=== PATIENT | female | born 1995 | race Caucasian/White ===

== ENCOUNTER 2016-10-09 13:46 | Emergency (ER) | payer OTHER ==
--- NOTE | 2016-10-09 15:49 | UC ---
UC General HPI - HPI Summary HPI Summary: fever, cough ,sore throat, bodyache, SIMENTAL for 5 days - History of Current Complaint Chief Complaint: UCGeneralIllness Stated Complaint: FEVER,COUGH,BODY ACHES Hx Obtained From: Patient Onset/Duration: Sudden Onset, Lasting Days Timing: Constant Onset Severity: Severe Current Severity: Severe Pain Intensity: 7 Associated Signs & Symptoms: Positive: Cough, Fever, Headache, Nausea, Weakness - Allergy/Home Medications Allergies/Adverse Reactions: Allergies Allergy/AdvReac Type Severity Reaction Status Date / Time No Known Allergies Allergy Verified 10/09/16 14:41 Home Medications: Home Medications Acetaminophen TAB* [Tylenol TAB*] 650 mg PO Q4H PRN 10/09/16 [History Confirmed 10/09/16] Dextromethorphan-Phenylephrine [Theraflu Severe Cold & Co] 1 tab PO Q6H PRN [History Confirmed 10/09/16] PMH/Surg Hx/FS Hx/Imm Hx Previously Healthy: Yes - Surgical History Surgical History: None - Family History Known Family History: Positive: Hypertension - Social History Alcohol Use: None Substance Use Type: None Smoking Status (MU): Never Smoked Tobacco Household Exposure Type: Cigarettes Review of Systems Constitutional: Fever, Chills, Fatigue Skin: Negative Eyes: Negative ENT: Sore Throat, Nasal Discharge Respiratory: Cough Cardiovascular: Negative Gastrointestinal: Negative Genitourinary: Negative Motor: Negative Neurovascular: Negative Musculoskeletal: Myalgia Neurological: Headache Psychological: Negative All Other Systems Reviewed And Are Negative: Yes Physical Exam Triage Information Reviewed: Yes Appearance: Well-Nourished, Ill-Appearing, Pain Distress Vital Signs: Initial Vital Signs Temp 97.6 F 10/09/16 14:42 Pulse 76 10/09/16 14:42 Resp 16 10/09/16 14:42 BP 106/62 10/09/16 14:42 Pulse Ox 98 10/09/16 14:42 Vital Signs Reviewed: Yes Eye Exam: Normal Eyes: Positive: Conjunctiva Clear ENT: Positive: Pharyngeal erythema, Nasal congestion, Nasal drainage, TM red, Tonsillar exudate Dental Exam: Normal Neck exam: Normal Neck: Positive: Supple, Nontender, No Lymphadenopathy Respiratory Exam: Normal Respiratory: Positive: Chest non-tender, Lungs clear, Normal breath sounds, Other: - dry cough present Cardiovascular Exam: Normal Cardiovascular: Positive: RRR, No Murmur, Pulses Normal Abdominal Exam: Normal Abdomen Description: Positive: Nontender, No Organomegaly, Soft Bowel Sounds: Positive: Present Musculoskeletal Exam: Normal Musculoskeletal: Positive: Strength Intact, ROM Intact Neurological: Positive: Alert, Muscle Tone Normal Psychological Exam: Normal Skin Exam: Normal Course/Dx - Course Course Of Treatment: hx obtained, exam performed, meds prescribed for cough, flu swab positive for A - Differential Dx - Multi-Symptom Provider Diagnoses: influenza. cough Discharge - Discharge Plan Condition: Stable Disposition: HOME Patient Education Materials: Influenza (ED) Additional Instructions: Take the medication as prescribed. Get plenty of rest and increase your fluid intake.
[2016-10-09 16:05] VITALS: BP 104/70
== END 2016-10-09 16:05 | disposition home or self-care (01) ==
LOC: UCCORT 13:46
DX: J11.1 Influenza due to unidentified influenza virus with other respiratory manifestations (principal)
CPT/HCPCS: 87502; 99212; G0463

== ENCOUNTER 2017-02-20 21:45 | Emergency (ER) | payer OTHER ==
[2017-02-20 21:54] VITALS: BP 129/79
--- NOTE | 2017-02-20 22:07 | UC ---
Complaint Female HPI - HPI Summary HPI Summary: pt presnts with c/o post coital bleeding. Pt began being sexually active 8 months ago and has only had one sexual partner. Pt is not using any form of control. Pt denies and unusual vaginal discharge or odor. Pt reports that sexual intercourse can occasionally be "rough" and painful. Pt any exposure or risk for STD Pt reports that bleeding has been intermittent over the last 2 months. - History Of Current Complaint Chief Complaint: UCGU Stated Complaint: PERSONAL Time Seen by Provider: 02/20/17 21:56 Hx Obtained From: Patient Hx Last Menstrual Period: 02/10/17 ?: No Onset/Duration: Gradual Onset Timing: Intermittent Severity Initially: Mild Severity Currently: Mild Aggravating Factor(s): [place] Associated Signs And Symptoms: Positive: Vaginal Bleeding/Discharge - bleeding with intercourse. - Risk Factors Ovarian Torsion Risk Factor: Reproductive Age - Allergies/Home Medications Allergies/Adverse Reactions: Allergies Allergy/AdvReac Type Severity Reaction Status Date / Time No Known Allergies Allergy Verified 02/20/17 21:54 PMH/Surg Hx/FS Hx/Imm Hx Previously Healthy: Yes - Surgical History Surgical History: None - Family History Known Family History: Positive: Hypertension - Social History Alcohol Use: None Substance Use Type: None Smoking Status (MU): Never Smoked Tobacco Household Exposure Type: Cigarettes Review of Systems Constitutional: Negative Skin: Negative Eyes: Negative ENT: Negative Respiratory: Negative Cardiovascular: Negative Gastrointestinal: Negative Genitourinary: Other - vaginal bleeding with intercourse Motor: Negative Neurovascular: Negative Musculoskeletal: Negative Neurological: Negative Psychological: Negative All Other Systems Reviewed And Are Negative: Yes Physical Exam Triage Information Reviewed: Yes Appearance: Well-Appearing Vital Signs: Initial Vital Signs Temp 99.2 F 02/20/17 21:49 Pulse 80 02/20/17 21:49 Resp 16 02/20/17 21:49 BP 129/79 02/20/17 21:49 Pulse Ox 100 02/20/17 21:49 Vital Signs Reviewed: Yes Eye Exam: Other - stye left lower lid Neck exam: Normal Respiratory: Positive: No respiratory distress Musculoskeletal Exam: Normal Neurological Exam: Normal Psychological Exam: Normal Skin Exam: Normal Complaint Female Dx - Course Course Of Treatment: I discussed with the pt the need establish care with a patient carrier provider and establish a method of control and STD risk management with use of condoms. I offered the pt a pelvic exam but she declined. - Differential Dx/Diagnosis Differential Diagnosis/HQI/PQRI: Other - post coital bleeding Provider Diagnoses: dysfunctionl vaginal bleeding,. control referral. need for patient carrier care Discharge - Discharge Plan Condition: Stable Disposition: HOME Patient Education Materials: Dysfunctional Uterine Bleeding (ED) Referrals: Chana Conway MD [Primary Care Provider] - Additional Instructions: Please follow up at: [facility] as soon as possible. It is important that you manage your health with continuity of care. Physical Address: [address] [place] [address] Floor, [address] [place] [address] Hours Examinations: Tuesday ~ 8:00AM - 4:00PM Tuesday ~ 8:00AM - 4:00PM Tuesday ~ 8:00AM - 4:00PM ~ 10:00AM - 6:00PM Tuesday ~ 8:00AM ~ 4:00PM
== END 2017-02-20 22:23 | disposition home or self-care (01) ==
LOC: UCCORT 21:45
DX: N93.8 Other specified abnormal uterine and vaginal bleeding (principal)
CPT/HCPCS: 99211; G0463

== ENCOUNTER → 2017-05-21 19:38 | Emergency (ER) | payer OTHER ==
[~2017-05-21 19:38] MED LIST: Sulfamethox/Trimethoprim DS 800/160* TAB ONE
== END | disposition home or self-care (01) ==
LOC: UCCORT 19:38
DX: L03.311 Cellulitis of abdominal wall (principal)
CPT/HCPCS: A9270-GY

== ENCOUNTER 2017-12-06 10:06 | Emergency (ER) | payer SELFPAY ==
[2017-12-06 10:56] VITALS: BP 116/62
--- NOTE | 2017-12-06 11:06 | UC ---
Nausea/Vomiting/Diarrhea HPI - HPI Summary HPI Summary: 22 y/o female presents to the urgent care c/o vomiting for the past 4 days. Pt states the first 2 days she had 2 episodes of nausea and vomiting. Yesterday she had 6 episodes. Today just one in the morning. Vomiting in mainly when she wakes up or trigger by certain smells. Pt denies Fever, abdominal pain, dizziness, SIMENTAL, SOB, chest pain, diarrhea or constipation. LMP:10/25/2017. She has had unprotected sex w/ her boyfriend. Pt denies Hx of STD's, vaginal discharge or urinary symptoms. she has not taking anything to alleviate symptoms. - History of Current Complaint Chief Complaint: UCGI Stated Complaint: VOMITING Time Seen by Provider: 12/06/17 10:58 Hx Obtained From: Patient Hx Last Menstrual Period: 10/25/17 ?: No - unsure Onset/Duration: Gradual Onset, Lasting Days - 4 days, Still Present, Worse Since - yesterday Timing: Intermittent Episodes Lasting: Severity Initially: Mild Severity Currently: Moderate Pain Intensity: 1 Pain Scale Used: 0-10 Numeric Location: Suprapubic - mild cramping at times Character: Cramping Aggravating Factor(s): Other: - smells Alleviating Factor(s): Nothing Vomiting Frequency: Every 3-4 hours Nausea/Vomiting Duration: 2-3 days Vomiting Characteristics: Bilious Diarrhea Presence: No - Risk Factors Influenza Risk Factors: Negative Surgical Obstruction Risk Factor(s): Negative - Allergies/Home Medications Allergies/Adverse Reactions: Allergies Allergy/AdvReac Type Severity Reaction Status Date / Time No Known Allergies Allergy Verified 12/06/17 10:49 PMH/Surg Hx/FS Hx/Imm Hx Previously Healthy: Yes - Pt denies PMHX - Surgical History Surgical History: None - Family History Known Family History: Positive: Hypertension - Social History Occupation: Employed Full-time Lives: With Family Alcohol Use: None Substance Use Type: None Smoking Status (MU): Never Smoked Tobacco Household Exposure Type: Cigarettes Review of Systems Constitutional: Negative Skin: Negative Eyes: Negative ENT: Negative Respiratory: Negative Cardiovascular: Negative Gastrointestinal: Abdominal Pain - mild suprapubic pain, Vomiting, Nausea Genitourinary: Negative Motor: Negative Neurovascular: Negative Musculoskeletal: Negative Neurological: Negative Psychological: Negative Is Patient Immunocompromised?: No All Other Systems Reviewed And Are Negative: Yes Physical Exam - Summary Physical Exam Summary: Vital Signs Reviewed: Yes General:Patient is a well developed and nourished obese female who is sitting comfortable in the examining table. Patient is not in any acute respiratory distress. Eyes: Positive: Conjunctiva Clear - PERRLA, EOMI, fundi grossly normal ENT: Positive: Normal ENT inspection, Hearing grossly normal, Pharynx normal, TMs normal Neck: Positive: Supple, Nontender, No Lymphadenopathy Respiratory: Positive: Chest non-tender, Lungs clear, Normal breath sounds, No respiratory distress Cardiovascular: Positive: RRR,S1 and S2 present, No Murmur, Pulses Normal, Brisk Capillary Refill Abdomen Description: Positive: Nontender, Other: - Abd: Flat with no distention. No surface trauma, scars, incisions.Normal bowel sounds present in all four quadrants. No tenderness, guarding, rigidity to palpation. No masses palpated, no pulsation in epigastric area. No organomegaly. Negative Cecil signs. No periumbilical tenderness. No rebound in the lower quadrants. NT over McBurneys point. Good femoral pulses bilaterally. No hernia noted. No CVAT bilaterally Musculoskeletal: Positive: Strength Intact, ROM Intact, No Edema,FROM in all major joints, no edema, no cyanosis or clubbing. Neuro: Alert and oriented x 3. No acute neurological deficits. Speech is normal. Psychological: WNL Skin: Dry and warm Triage Information Reviewed: Yes Vital Signs: Initial Vital Signs Temp 98.2 F 12/06/17 10:49 Pulse 69 12/06/17 10:49 Resp 16 12/06/17 10:49 BP 116/62 12/06/17 10:49 Pulse Ox 99 12/06/17 10:49 Naus/Vom/Diarrhea Course/Dx - Course Course Of Treatment: 22 y/o female presents to the urgent care c/o vomiting for the past 4 days. Pt states the first 2 days she had 2 episodes of nausea and vomiting. Yesterday she had 6 episodes. Today just one in the morning. Vomiting in mainly when she wakes up or trigger by certain smells. Pt denies Fever, abdominal pain, dizziness, SIMENTAL, SOB, chest pain, diarrhea or constipation. LMP:. She has had unprotected sex w/ her boyfriend. Pt denies Hx of STD's, vaginal discharge or urinary symptoms. she has not taking anything to alleviate symptoms. Hx obtained. PE:WNL, no signs of dehydration. UA and test ordered. UA:+ trace leukoesteraces. : Positive. Pt Rx Diclegis PO to alleviate Nausea and Vomiting. Pt educated on the improtance to be hydrated. advised to increase fluid intake, eat soft meals, rest. REcommended to f/y W/ OBGYN Dr Jones or he OBGYN as soon as possible to start Pre-nikki care. Pt and Mother explained D/C instructions. Pt understood and agreed w/ plan of care. Pt left the clinic ambulating, A&OX3 - Differential Dx/Diagnosis Differential Diagnoses - Female: Appendicitis, , Gerd, Gastroenteritis (Viral), Gastroenteritis (Bacterial), Vomiting Provider Diagnoses: 1- Acute nausea and vomiting. 25- Condition At Discharge: Stable Discharge - Sign-Out/Discharge Documenting (check all that apply): Discharge/Admit/Transfer - discharge home - Discharge Plan Condition: Stable Disposition: HOME Prescriptions: Doxylamine/Pyridoxine(NF) [Diclegis (NF)] 2 tab PO QPM #20 tab Patient Education Materials: Nausea and Vomiting in (ED), ( ED) Referrals: Thomas Jones MD [Medical Doctor] - 2 Days Additional Instructions: 1- Please increase fluid intake to improve hydration. Drink adult Pedialyte or Gatorade , eat soft meals and small portions through out the day. 2-Take Diclegis PO as directed to alleviate Nausea and vomiting. 3- Please make an appt w/ OBGY DR Jones or your OBGYN as soon as possible to start your Pre- care. 4-Start taking Pre vitamins. - Billing Disposition and Condition Condition: STABLE Disposition: HOME
== END 2017-12-06 11:26 | disposition home or self-care (01) ==
LOC: UCCORT 10:06
DX: O21.9 Vomiting of pregnancy, unspecified (principal); Z3A.00 Weeks of gestation of pregnancy not specified
CPT/HCPCS: 81003; 84702; 87086; 99212; G0463

== ENCOUNTER 2018-09-01 09:20 | Emergency (ER) | payer OTHER ==
[2018-09-01 09:45] VITALS: BP 102/60
--- NOTE | 2018-09-01 10:21 | UC ---
Complaint Female HPI - HPI Summary HPI Summary: Pt presents with c/o anal itching and appearance of "white string" after wiping after BM. Pt is concerned for pinworms. Also, pt has hx of internal and external hemorrhoid post delivery. Pt denies anal itching worsening at anytime time of the day. C/O X 2 days. - History Of Current Complaint Chief Complaint: UCGI Stated Complaint: PERSONAL Time Seen by Provider: 09/01/18 10:04 Hx Obtained From: Patient Hx Last Menstrual Period: 07/26/18 -08/18/18 ?: No Onset/Duration: Sudden Onset, Lasting Days, Still Present Timing: Intermittent Severity Initially: Mild Severity Currently: Mild Pain Intensity: 0 Character: Burning Aggravating Factor(s): Nothing Alleviating Factor(s): Nothing Associated Signs And Symptoms: Positive: Negative - Risk Factors Ectopic Risk Factor: Negative Ovarian Torsion Risk Factor: Reproductive Age - Allergies/Home Medications Allergies/Adverse Reactions: Allergies Allergy/AdvReac Type Severity Reaction Status Date / Time No Known Allergies Allergy Verified 09/01/18 09:46 Home Medications: Home Medications NK [No Home Medications Reported] 09/01/18 [History Confirmed 09/01/18] PMH/Surg Hx/FS Hx/Imm Hx Previously Healthy: Yes - Surgical History Surgical History: None - Family History Known Family History: Positive: Hypertension - Social History Occupation: Employed Full-time, Works From/At Home Lives: With Family Alcohol Use: None Substance Use Type: None Smoking Status (MU): Never Smoked Tobacco Have You Smoked in the Last Year: No Household Exposure Type: Cigarettes - Immunization History Vaccination Up to Date: Yes Review of Systems All Other Systems Reviewed And Are Negative: Yes Constitutional: Positive: Negative Skin: Positive: Negative, Other - anal itching Eyes: Positive: Negative ENT: Positive: Negative Respiratory: Positive: Negative Cardiovascular: Positive: Negative Gastrointestinal: Positive: Other - anal itching Genitourinary: Positive: Negative Motor: Positive: Negative Neurovascular: Positive: Negative Musculoskeletal: Positive: Negative Neurological: Positive: Negative Psychological: Positive: Negative Is Patient Immunocompromised?: No Physical Exam Triage Information Reviewed: Yes Appearance: Well-Appearing Vital Signs: Initial Vital Signs Temp 97.8 F 09/01/18 09:35 Pulse 63 09/01/18 09:35 Resp 20 09/01/18 09:35 BP 102/60 09/01/18 09:35 Pulse Ox 100 09/01/18 09:35 Vital Signs Reviewed: Yes Eye Exam: Normal ENT Exam: Normal Dental Exam: Normal Neck exam: Normal Respiratory: Positive: No respiratory distress Pelvic Exam: Positive: Other - anus no lesions, no hemorrhoids external or internal, no visible pinworms. Pinworm paddle used as well as single digital exam performed. Complaint Female Dx - Differential Dx/Diagnosis Differential Diagnosis/HQI/PQRI: Other - pinworms, hemorrhoid Provider Diagnosis: Anal itching Discharge - Sign-Out/Discharge Documenting (check all that apply): Patient Departure All imaging exams completed and their final reports reviewed: No Studies - Discharge Plan Condition: Stable Disposition: HOME Patient Education Materials: Anal Itching (ED) Referrals: [facility] [Outside] - If Needed No Primary Care Phys,NOPCP [Primary Care Provider] - - Billing Disposition and Condition Condition: STABLE Disposition: Home - Attestation Statements Provider Attestation: I was available for consult. This patient was seen by the RACHELL. The patient was not presented to, seen by, or examined by me. -Madelaine
== END 2018-09-01 10:32 | disposition home or self-care (01) ==
LOC: UCCORT 09:20
DX: L29.0 Pruritus ani (principal)
CPT/HCPCS: 87172; 99211; G0463

== ENCOUNTER 2019-05-18 09:08 | Emergency (ER) | payer OTHER ==
--- OUTSIDE RECORDS SUMMARY | 2019-05-18 09:22 | XMS REPORT | Continuity of Care Document ---
:1995 External Reference #:[id number] Author Name Emilee Vega PA Address [address] [place] [address] Care Team Providers Name Role Phone Emilee Vega PA - Medical Care Team Information Director Of Search Engine Marketing [phone] Problems Description No Information Available Social History Type Date Description Comments Sex Unknown ETOH Use Denies alcohol use Tobacco Use Start: Unknown Patient denies history of smoking Smoking Status Reviewed: 03/30/19 Patient denies history of smoking Exercise Type/Frequency Exercises rarely Allergies, Adverse Reactions, Alerts Description No Known Drug Allergies Medications Active Medications SIG Qnty Indications Ordering Date Provider Magnesium Oxide 1 by mouth every 30tabs R51 Justin 03/30/2019 400mg Tablets day MD Trista Vitamin B-2 1 by mouth every 30tabs R51 Justin 03/30/2019 100mg Tablets day for MD Trista prevention of headache Escitalopram Oxalate 1 by mouth every 30tabs F41.9 Justin, 12/25/2018 10mg Tablets day MD Trista Medroxyprogesterone Use as Directed Unknown Acetate 150mg/ml Suspension Immunizations Description No Information Available Vital Signs Date Vital Result Comment 03/30/2019 3:41pm BP Systolic 124 mmHg BP Diastolic 84 mmHg Body Temperature 98.5 F Heart Rate 107 /min Respiratory Rate 18 /min Height 69 inches 5'9" Weight 270.00 lb BMI (Body Mass Index) 39.9 kg/m2 BSA (Body Surface Area) 2.35 m2 [place] body weight in kilograms 66 kg O2 % BldC Oximetry 97 % 12/25/2018 10:33am BP Systolic 114 mmHg BP Diastolic 62 mmHg Body Temperature 97.5 F Heart Rate 78 /min Height 69 inches 5'9" Weight 263.00 lb BMI (Body Mass Index) 38.8 kg/m2 BSA (Body Surface Area) 2.32 m2 [place] body weight in kilograms 66 kg O2 % BldC Oximetry 97 % Results Test Date Facility Test Result H/L Range Note Urine Dipstick 12/25/2018 [facility] Ua Color yellow Yellow Ua Clarity clear Clear Ua Leuko 15 [place]/uL High Negative Ua Nitrite negative Negative Ua Urobilinogen 2.0 High 0.2 - 1.0 E.U./dL Ua Protein negative Negative Ua PH 6.0 Low 6.5-7.5 Ua Blood negative Negative Ua Specific [place] 1.030 1.010-1.030 Ua Ketones negative Negative Ua Bilirubin negative Negative Ua Glucose negative Negative Procedures Date Code Description Status 12/25/2018 01739 Brief Emotional/Behav Assessment W/ Scoring Doc Per Completed Standard Inst Medical Devices Description No Information Available Encounters Type Date Location Provider Dx Diagnosis Office Visit 12/25/2018 Family Medicine Emilee Vega PA R10.9 Unspecified 10:[address] abdominal pain F41.9 Anxiety disorder, unspecified Z68.28 Body mass index (BMI) 28.0-28.9, adult Assessments Date Code Description Provider 03/30/2019 R53.83 Other fatigue Emilee Vega PA 03/30/2019 R51 Headache Emilee Vega PA 03/30/2019 F41.9 Anxiety disorder, unspecified Emilee Vega PA 03/30/2019 Z13.220 Encounter for screening for lipoid disorders Emilee Vega PA 12/25/2018 R10.9 Unspecified abdominal pain Emilee Vega PA 12/25/2018 F41.9 Anxiety disorder, unspecified Emilee Vega PA 12/25/2018 Z68.28 Body mass index (BMI) 28.0-28.9, adult Emilee Vega PA Plan of Treatment 03/30/2019 - Emilee Vega PAR53.83 Other fatigueComments:Please return to the lab next week in the morning, prior to eating to get fasting blood work drawn. I will call when the results return. Your fatigue and weakness may be related to underlying medical issue, such as anemia, thyroid or vitamin deficiency. We will check the labs and then discuss treatment options once the lab results return.R51 HeadacheNew Medication:Magnesium Oxide 400 mg - 1 by mouth every dayVitamin B-2 100 mg - 1 by mouth every day for prevention of headacheComments: Headache can be triggered by a variety of factors. These include, fatigue, stress, dehydration and caffeine or caffeine withdrawal. Try to stay well hydrated, well rested and reduce your stress. Use the medication as directed. Try not to use OTC analgesics too frequently. This can lead to rebound headache.F41.9 Anxiety disorder, unspecifiedComments:Take medications as prescribed. The Escitalopram does not work well unless taken daily. Provide plenty of water.Follow up:1 [id number] Encounter for screening for lipoid disorders Functional Status Description No Information Available Mental Status Description No Information Available Referrals Description No Information Available
[2019-05-18 09:30] VITALS: BP 121/64
--- NOTE | 2019-05-18 10:00 | UC ---
Complaint Female HPI - HPI Summary HPI Summary: 23-year-old female who complains of nausea since yesterday morning. She is presently menstruating. She takes Depakote injection that states she usually has a period after 3 months just prior to when the next injection is due. She states she has had some "stomach pain" and nausea since yesterday morning. She denies diarrhea however states that her stools are soft but not liquid. No other family members are ill. She denies any urinary symptoms. When asked where the abdominal discomfort is located she points across her lower abdomen. She denies any abnormal vaginal discharge. She has no history of sexually transmitted diseases. She is sexually active with one partner. She denies any fever or chills. - History Of Current Complaint Chief Complaint: UCAbdominalPain Stated Complaint: UPSET STOMACH Time Seen by Provider: 05/18/19 09:59 Hx Obtained From: Patient Hx Last Menstrual Period: 05/14/19 ?: No Onset/Duration: Gradual Onset, Other - Patient states the abdominal pain is a quick sharp pain in the left lower abdomen when she moves and only lasts a few seconds, lthough her nausea has been constant since yesterday morning. Timing: Lasting Hours Severity Initially: Mild Severity Currently: Mild Pain Intensity: 5 Character: Sharp - See above notes. Aggravating Factor(s): Movement Alleviating Factor(s): Position Associated Signs And Symptoms: Positive: Vaginal Bleeding/Discharge - Patient is presently menstruating., Nausea. Negative: Fever, Back Pain, Vaginal Discharge, Vomiting(# Of Episodes =) - Allergies/Home Medications Allergies/Adverse Reactions: Allergies Allergy/AdvReac Type Severity Reaction Status Date / Time No Known Allergies Allergy Verified 05/18/19 09:24 Home Medications: Home Medications Cyanocobalamin TAB* [Vitamin B12 TAB*] 500 mcg PO DAILY 05/18/19 [History Confirmed 05/18/19] Escitalopram * [Lexapro 10 mg (NF)] 10 mg PO DAILY 05/18/19 [History Confirmed 05/18/19] Ferrous Sulfate TAB* 325 mg PO DAILY 05/18/19 [History Confirmed 05/18/19] Magnesium Oxide TAB* [MagOx 400 TAB*] 400 mg PO DAILY 05/18/19 [History Confirmed 05/18/19] PMH/Surg Hx/FS Hx/Imm Hx Previously Healthy: Yes - Surgical History Surgical History: None - Family History Known Family History: Positive: Hypertension - Social History Lives: With Family Alcohol Use: None Substance Use Type: None Smoking Status (MU): Never Smoked Tobacco Have You Smoked in the Last Year: No Household Exposure Type: Cigarettes - Immunization History Vaccination Up to Date: Yes Review of Systems All Other Systems Reviewed And Are Negative: Yes Gastrointestinal: Positive: Abdominal Pain - Patient states occasional sharp pain left abdomen with movement which only lasts a few seconds., Nausea - Patient states she's had nausea since yesterday morning. No other family members are ill. Genitourinary: Positive: Negative Is Patient Immunocompromised?: No Physical Exam Triage Information Reviewed: Yes Appearance: Well-Appearing, No Pain Distress, Well-Nourished Vital Signs: Initial Vital Signs Temp 97.9 F 05/18/19 09:20 Pulse 90 05/18/19 09:20 Resp 18 05/18/19 09:20 BP 121/64 05/18/19 09:20 Pulse Ox 99 05/18/19 09:20 Vital Signs Reviewed: Yes Eyes: Positive: Conjunctiva Clear ENT: Positive: Hearing grossly normal, TMs normal, Uvula midline Neck exam: Normal Neck: Positive: Supple, Nontender, No Lymphadenopathy Respiratory: Positive: Lungs clear, Normal breath sounds, No respiratory distress, No accessory muscle use Cardiovascular: Positive: RRR, No Murmur, Pulses Normal, Brisk Capillary Refill Abdomen Description: Positive: Nontender, No Organomegaly, Soft, Other: - I did the abdominal exam several times in the patient does not react with any pain nor is there any rigidity rebound or guarding.. Negative: CVA Tenderness (R), CVA Tenderness (L), Distended, Guarding, Hepatomegaly, McBurney's Point Tenderness, Peritoneal Signs, Splenomegaly Bowel Sounds: Positive: Present Musculoskeletal Exam: Normal Neurological Exam: Normal Psychological Exam: Normal Skin Exam: Normal Complaint Female Dx - Course Course Of Treatment: At this point time I do not feel this is a surgical abdomen. Because of the medication the patient takes there is a warning with Zofran therefore I encouraged rest, increase fluids, obtain some latasha tablets or chews for nausea which the patient stated has worked for her in the past. Her urine had 1 + leukocytes, with some blood (she's presently menstruating), but with the lack of symptoms of urinary tract infection I advised her we would send that for a urine culture. test was negative. I advised the patient to only take Tylenol for pain but definite follow-up in the emergency room if continued symptoms or no improvement. I think she can give this 24 hours to see what evolves. Upon discharge she and her mother, who was with her, did voice that they preferred to go to the emergency room for further evaluation. - Differential Dx/Diagnosis Provider Diagnosis: Abdominal pain Discharge ED - Sign-Out/Discharge Documenting (check all that apply): Patient Departure All imaging exams completed and their final reports reviewed: No Studies - Discharge Plan Condition: Fair Disposition: HOME Patient Education Materials: Acute Nausea and Vomiting (ED) Forms: *Work Release Referrals: Emilee Vega PA [Primary Care Provider] - Additional Instructions: Go home and rest, do not take anything stronger than Tylenol for discomfort, avoid greasy and spicy foods. Tried the Latasha tablets or latasha chews for nausea. If her symptoms worsen go to the emergency room for further evaluation. - Billing Disposition and Condition Condition: FAIR Disposition: Home
--- NOTE | 2019-05-20 12:58 | UC ---
- Progress Note Progress Note: Final urine culture report reviewed: No growth(less than 1000 CFU/mL) She is not on any antibiotic. Patient was here for abdominal pain, test was negative and she was advised to go to the ER with worsening of symptoms. RN to call the patient and inform her of the test results and if she is still symptomatic advise her to go to the ER for further testing Course/Dx - Diagnoses Provider Diagnoses: Abdominal pain Discharge ED - Sign-Out/Discharge Documenting (check all that apply): Post-Discharge Follow Up All imaging exams completed and their final reports reviewed: No Studies - Discharge Plan Condition: Fair Disposition: HOME Patient Education Materials: Acute Nausea and Vomiting (ED) Forms: *Work Release Referrals: Emilee Vega PA [Primary Care Provider] - Additional Instructions: Go home and rest, do not take anything stronger than Tylenol for discomfort, avoid greasy and spicy foods. Tried the Latasha tablets or latasha chews for nausea. If her symptoms worsen go to the emergency room for further evaluation. - Billing Disposition and Condition Condition: FAIR Disposition: Home
== END 2019-05-18 10:48 | disposition home or self-care (01) ==
LOC: UCCORT 09:08
DX: R10.32 Left lower quadrant pain (principal); Z79.899 Other long term (current) drug therapy; R11.0 Nausea
CPT/HCPCS: 81003; 84702; 87086; 99211; G0463

== ENCOUNTER 2019-11-10 11:03 | Emergency (ER) | payer OTHER | END 2019-11-10 11:20 | disposition home or self-care (01) | LOC: UCCORT 11:03 | DX: J00 Acute nasopharyngitis [common cold] (principal); F41.9 Anxiety disorder, unspecified; Z79.899 Other long term (current) drug therapy | CPT/HCPCS: 99211; G0463 ==